=== PATIENT | female | born 1995 | race Caucasian/White ===

== ENCOUNTER 2021-01-23 16:46 | Observation (INO) | payer OTHER ==
[2021-01-23] MEDS ORDERED: ONDANSETRON 4 MG/2 ML VIAL IV PRN (17:21)
[2021-01-23 17:51] VITALS: BMI 45.3
[2021-01-23] MEDS: MORPHINE 4 MG/ML SYR IV PRN ×2 (17:58→20:36)
[2021-01-23] MEDS: Ringers Lactate 1,000 ML IV SCH (18:00)
[2021-01-23] MEDS ORDERED: INFLUENZA VACCINE (for 6+ mo) 0.5 ML DOSE IMVAC ONE (20:00)
--- NOTE | 2021-01-23 21:12 | P.HP ---
Date of Service: 01/23/21 PC: This 25-year-old female presented to another facility with right lower quadrant abdominal pain for diagnosis and treatment. HPC: Patient has had a 5-day history of lower abdominal pain. Pain is now localized more in the right lower quadrant. Hurts when she tries to walk or move. The other facility did not have surgical capabilities and she was transferred to [facility] for surgical evaluation and treatment. PSHx: Negative PMHx: Negative Social Hx: No known allergies, Sys R: No cough, wheeze, shortness of breath. No chest pain or palpitations. Denies any urinary complaints. LMP 1 week ago. No discharge. O/E: Awake alert vital signs are stable HEENT: Within normal limits Chest: Chest movement equal bilaterally Abd: Tender with guarding in the right lower quadrant [place]: Intact Data: White cell count is normal, CT scan suggest early appendicitis Impression: Acute abdomen with appendicitis Plan: I will take to the operating room for laparoscopic possible open appendectomy. The risks of this procedure have been discussed. The possibility of bleeding, infection, injury to bowel and surrounding structures were outlined. The possible development of abscesses and these for further surgeries and procedures was discussed. She understands and wants us to proceed.
[2021-01-23] MEDS ORDERED: LIDOCAINE 2% MPF 5 ML VIAL ONE (21:29)
[2021-01-23] MEDS ORDERED: FENTANYL CITR 100 MCG/2 ML ONE ×2 (21:29→22:28)
[2021-01-23] MEDS ORDERED: propofoL 200 MG/20 ML VIAL IV ONE (21:29)
[2021-01-23] MEDS ORDERED: ROCURONIUM 50 MG/5 ML VIAL IV ONE (21:30)
[2021-01-23] MEDS ORDERED: KETOROLAC 30 MG/ML INJ ONE (22:11)
[2021-01-23] MEDS ORDERED: dexAMETHasone 10 MG/ML VIAL ONE (22:11)
[2021-01-23] MEDS ORDERED: NEOSTIGMINE 1 MG/ML -5 ML ONE (22:33)
[2021-01-23] MEDS ORDERED: GLYCOPYRROLATE 0.2 MG/ML SYR ONE ×2 (22:33→22:54)
--- NOTE | 2021-01-23 22:38 | P.OP ---
Preoperative diagnosis: Acute abdomen Postoperative diagnosis: Acute appendicitis Primary procedure: Laparoscopic appendectomy Anesthesia: General Estimated blood loss: Less than 15 cc Specimen: 1 appendix Findings: Acute appendicitis Operative Technique: The patient brought the operating room and placed supine on the table. After the induction of adequate general endotracheal anesthesia, and the placement of a Jara catheter under aseptic technique, the abdomen was prepped with a DuraPrep solution, and she was draped in usual aseptic manner. A subumbilical incision was made. This was brought down through the skin and subcutaneous tissue. The Visiport was now used to enter the peritoneal cavity and created pneumoperitoneum to approximately 12 mmHg. Under direct vision a 5 mm trocar was placed in the lower midline, and another on the right lateral side of the abdomen. The patient was then placed in reverse Trendelenburg. The table was turned towards the left. We could visualize the right lower quadrant. We could see an acutely inflamed appendix with considerable amount of fibrinous exudate around it. This was adherent to the pelvic sidewall as well as to the small bowel. These adhesions were gently taken down. The appendix was now grasped and we were able to isolate the junction of the appendix with the cecum. As well as that the vasculature of the appendix was identified. An opening was made in the window of the mesentery to the appendix. The linear stapler was now introduced through the umbilical trocar which had been converted to a 12 and placed across the base of the appendix at its junction with the cecum. The instrument was fired. A reload was used to take down the vasculature. The specimen was now placed into an Endo Close and brought out through the umbilical trocar site. The area was inspected to ensure adequate hemostasis. This having been done the umbilical trocar site was approximated with the Endo Close. The pneumoperi toneum was now collapsed, the trochars removed, and lakisha applied to the skin. At the end of the procedure she was in a stable condition was sent to the recovery room. Needle sponge instrument count were correct. No drains were placed. Complications: None Transferred to: Recovery Room Condition: Good
[2021-01-23] MEDS: HYDROMORPHONE HCL 1 MG/ML INJ ONE ×4 (22:53→23:12)
[2021-01-23] MEDS ORDERED: HYDROCODONE/APAP 7.5/325 MG TAB PO PRN (23:09)
[2021-01-23 23:13] VITALS: O2SAT 96
[2021-01-23] MEDS ORDERED: ONDANSETRON 4 MG/2 ML VIAL ONE (23:30)
[2021-01-24] MEDS: MORPHINE 4 MG/ML SYR IV PRN ×3 (00:16→06:22)
[2021-01-24] MEDS ORDERED: PIPER TAZO 3.375 GM in NA CHLORIDE 0.9% 100 ML IV SCH (01:00)
[2021-01-24] MEDS: Ringers Lactate 1,000 ML IV SCH ×2 (02:00→10:00)
[2021-01-24 12:42] VITALS: BP 101/54; TEMP 97.8
== END 2021-01-24 17:46 | disposition home or self-care (01) ==
LOC: 2ND 16:46
PROVIDERS: ADMIT Surgery; ATTEND Surgery
PROC: 0DTJ4ZZ Resection of Appendix, Percutaneous Endoscopic Approach (ICD-10-PCS; principal; 2021-01-23 21:00)
DX: K35.80 Unspecified acute appendicitis (principal); K21.9 Gastro-esophageal reflux disease without esophagitis
CPT/HCPCS: 44970; 88304; J2704; J3010 ×2; J1100; J1170 ×2; J2710; J7120; J2405; G0378 ×3

== ENCOUNTER 2023-03-01 06:29 | Emergency (ER) | payer OTHER ==
--- OUTSIDE RECORDS SUMMARY | 2023-03-01 07:35 | XMS REPORT | Continuity of Care Document ---
:1995 Author Organization [facility] t Address [address] [place] [id number] Care Team Providers Name Role Phone ALEXANDER MORELAND Attending Clinician Unavailable Roxann_Marie Attending Clinician Unavailable Roxann_P Admitting Clinician Unavailable Problems This patient has no known problems. Allergies, Adverse Reactions, Alerts Allergy Allergy Status Severity Reaction(s) Onset Inactive Treating Comm ents Source Name Type Date Date Clinician NO KNOWN Drug [facility]ations This patient has no known medications. Procedures This patient has no known procedures. Encounters Start End Encounter Admission Attending Care Care Encounter Source Date/Time Date/Time Type Type Clinicians Facility Department ID 2020-09-18 2020-09-18 Outpatient [facility] [id number] [facility] 14:11:00 14:11:00 rudolph RUELAS [facility] 2019-07-23 2019-07-23 Outpatient Roxann_P [facility] [id number] [place] 05:47:00 05:47:00 [facility] Results This patient has no known results.
[2023-03-01] MEDS ORDERED: ALPRAZOLAM 0.5 MG TABLET ONE (07:38)
--- NOTE | 2023-03-01 08:43 | ER ---
Nurse's Notes [facility] Name: Berna Vance Age: 27 yrs Sex: Female : 1995 Arrival Date: 03/01/2023 Time: 06:29 Bed IW2 Private MD: Diagnosis: Anxiety disorder, unspecified Presentation: 03/01 07:13 Chief complaint: Patient states: panic attack X 1 hour, had an issue with her bf that iw triggered it. Coronavirus screen: At this time, the client does not indicate any symptoms associated with coronavirus-19. Ebola Screen: Patient negative for fever greater than or equal to 101.5 degrees Fahrenheit, and additional compatible Ebola Virus Disease symptoms Patient denies exposure to infectious person. Patient denies travel to an Ebola-affected area in the 21 days before illness onset. No symptoms or risks identified at this time. Initial Sepsis Screen: Does the patient meet any 2 criteria? No. Patient's initial sepsis screen is negative. Does the patient have a suspected source of infection? No. Patient's initial sepsis screen is negative. Risk Assessment: Do you want to hurt yourself or someone else? Patient reports no desire to harm self or others. Onset of symptoms was March 01, 2023. 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 - Social history:: Smoking status: unknown. Screenin:35 [facility] ED Fall Risk Assessment (Adult) Score/Fall Risk Level 0 - 2 = Low Risk. Abuse iw screen: Denies threats or abuse. Denies injuries from another. Nutritional screening: No deficits noted. Tuberculosis screening: No symptoms or risk factors identified. Assessment: 07:15 General: Appears distressed, Behavior is agitated, anxious, crying. iw 07:15 Pain: Complains of pain in right hand, left hand, right leg and left leg. Neuro: Level iw of Consciousness is awake, alert, obeys commands. 09:30 Reassessment: Patient appears in no apparent distress at this time. Patient and/or iw family updated on plan of care and expected duration. Pain level reassessed. Patient states feeling better. Patient states symptoms have improved. Vital Signs: 07:13 BP 138 / 109; Pulse 105; Resp 28 S; Temp 98.1; Pulse Ox 100% on R/A; iw 09:35 Pulse 72; Resp 16; Pulse Ox 100% ; iw ED Course: 06:34 Patient arrived in ED. gm2 07:07 Rafy Hubbard DO is Attending Physician. ms3 07:14 Triage completed. iw 07:14 Arm band placed on. iw 07:22 Erika Wood, [facility] is Primary Nurse. iw 08:42 Brennan Anders DO is Referral Physician. ms3 09:30 Provided Education on: . iw 09:35 Patient has correct armband on for positive identification. iw 09:35 No provider procedures requiring assistance completed. Patient did not have IV access iw during this emergency room visit. Administered Medications: 07:26 Drug: ALPRAZolam PO Tablet 0.5 mg PO once Route: PO; iw 08:30 Follow up: Response: No adverse reaction; Marked relief of symptoms iw Medication: 09:30 VIS not applicable for this client. iw Outcome: 08:43 Discharge ordered by . ms3 09:35 Discharged to home ambulatory, with friend, iw 09:35 Condition: improved 09:35 Discharge instructions given to patient, Instructed on discharge instructions, follow up and referral plans. 09:36 Patient left the ED. iw Signatures: Erika Wood RN RN iw Rafy Hubbard DO DO ms3 McJulia gm2 Corrections: (The following items were deleted from the chart) 09:35 08:30 General: Appears distressed, Behavior is agitated, anxious, crying, iw iw
--- NOTE | 2023-03-01 08:43 | EDPHYS ---
Physician Documentation [facility] Name: Berna Vance Age: 27 yrs Sex: Female : 1995 Arrival Date: 03/01/2023 Time: 06:29 Bed IW2 Private MD: ED Physician Rafy Hubbard HPI: 03/01 08:43 This 27 yrs old Female presents to ER via Ambulatory with complaints of panic attack. ms3 08:43 27-year-old female with no past medical history presents to the emergency department ms3 for panic attack that began 1 hour prior to arrival. Patient states the panic attack began after an argument with her boyfriend. Patient denies nausea, vomiting, pain. Patient denies any alleviating factors. 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 - Social history:: Smoking status: unknown. ROS: 08:43 Constitutional: Negative for fever, and chills. Neck: Negative for injury, pain, and ms3 swelling, Cardiovascular: Negative for chest pain, and palpitations. Respiratory: Negative for shortness of breath, cough, wheezing, and pleuritic chest pain, Abdomen/GI: Negative for abdominal pain, nausea, vomiting, diarrhea, and constipation, Skin: Negative for injury, rash, and discoloration, 08:43 Psych: Positive for anxiety, 08:43 All other systems are negative, Exam: 08:43 Constitutional: This is a well developed, well nourished patient who is awake, alert, ms3 and in no acute distress. Head/Face: Normocephalic, atraumatic. Neck: Trachea midline, no cervical lymphadenopathy. Supple, full range of motion without nuchal rigidity, or vertebral point tenderness. No Meningismus. Chest/axilla: Normal chest wall appearance and motion. Nontender with no deformity. Cardiovascular: Regular rate and rhythm with a normal S1 and S2. No gallops, murmurs, or rubs. Normal PMI, no JVD. No pulse deficits. Respiratory: Lungs have equal breath sounds bilaterally, clear to auscultation and percussion. No rales, rhonchi or wheezes noted. No increased work of breathing, no retractions or nasal flaring. Abdomen/GI: Soft, non-tender, with normal bowel sounds. No distension or tympany. No guarding or rebound. No evidence of tenderness throughout. Skin: Warm, dry with normal turgor. Normal color with no rashes, no lesions, and no evidence of cellulitis. 08:43 Psych: Behavior/mood is anxious, Oriented to person, place, time, Patient has no thoughts/intents to harm self or others. Delusions/hallucinations are not present. Vital Signs: 07:13 BP 138 / 109; Pulse 105; Resp 28 S; Temp 98.1; Pulse Ox 100% on R/A; iw 09:35 Pulse 72; Resp 16; Pulse Ox 100% ; iw MDM: 07:18 Patient medically screened. ms3 08:43 Differential diagnosis: Situation stress reaction versus anxiety. Data reviewed: vital ms3 signs, nurses notes, and as a result, I will discharge patient. I considered the following discharge prescriptions or medication management in the emergency department Medications were administered in the Emergency Department. See MAR. Historians other than the Patient: Spouse/Significant Other: Patient's boyfriend. Counseling: I had a detailed discussion with the patient and/or guardian regarding the historical points, exam findings, and any diagnostic results supporting the discharge/admit diagnosis, the need for outpatient follow up, to return to the emergency department if symptoms worsen or persist or if there are any questions or concerns that arise at home. Response to treatment: the patient's symptoms have markedly improved after treatment, and as a result, I will discharge patient. Special discussion: I discussed with the patient/guardian in detail that at this point there is no indication for admission to the hospital. It is understood, however, that if the symptoms persist or worsen the patient needs to return immediately for re-evaluation. ED course: On reevaluation patient improved, alert and orient x4, no apparent distress, nontoxic-appearing, ambulatory in emergency department. Patient to follow-up with Dr. Anders in 2 to 3 days. Patient understands and agrees with plan. All questions were answered. Return precautions discussed include worsening symptoms, or any other concerns. Administered Medications: 07:26 Drug: ALPRAZolam PO Tablet 0.5 mg PO once Route: PO; iw 08:30 Follow up: Response: No adverse reaction; Marked relief of symptoms iw Disposition Summary: 03/01/23 08:43 Discharge Ordered Notes: Location: Home ms3 Condition: Stable ms3 Diagnosis - Anxiety disorder, unspecified ms3 Followup: ms3 - With: Brennan Anders DO - When: 2 - 3 days - Reason: Recheck today's complaints Discharge Instructions: - Discharge Summary Sheet ms3 - Panic Attack ms3 Forms: - Work release form iw - Family Work Release iw - Medication Reconciliation Form ms3 - Thank You Letter ms3 - Antibiotic Education ms3 - Prescription Opioid Use ms3 - Patient Portal Instructions ms3 - Leadership Thank You Letter ms3 Signatures: Erika Wood, RN RN iw Rafy Hubbard DO DO ms3
[2023-03-01 09:51] VITALS: BP 138/109; TEMP 98.1; O2SAT 100
== END 2023-03-01 09:36 | disposition home or self-care (01) ==
LOC: ER 06:29
DX: F41.9 Anxiety disorder, unspecified (principal)
CPT/HCPCS: 99283